=== PATIENT | female | born 1975 | race Two or more races ===

== ENCOUNTER 2021-10-21 20:48 | Emergency (ER) | payer OTHER, SELFPAY ==
[2021-10-21 21:02] VITALS: BP 155/91; PULSE 99; RESP 18; TEMP 36.5; O2SAT 99; BMI 42.7
--- NOTE | 2021-10-21 22:55 | ED_ITS ---
HPI - Skin/Abscess/Foreign Bdy General Chief complaint: Skin/Abscess/Foreign Body Stated complaint: Rash Time Seen by Provider: 10/21/21 22:54 Source: patient Mode of arrival: ambulatory Limitations: no limitations History of Present Illness HPI narrative: 46-year-old female presents with diffuse rash on her face, chest, neck, axilla, abdomen, back, groin and thighs. Rash started approximately a week ago, was se en by her primary care physician and given Bactrim and a prescription or ointment that was ineffective. Patient states that this itching is causing anxiety and panic. Patient does not know if she has been exposed to any allergens, does not have any known environmental allergies, has not changed any of her household products or eaten any foods suspicious of allergy. MD complaint: rash Onset (ago): week(s) (1) Tetanus up to date: yes Location: generalized Severity: moderate Severity scale (1-10): 7 Quality: burning and constant Pain Consistency: constant Relieving factors: none Exacerbating factors: palpation and movement Context: none Associated symptoms: itching Treatments prior to arrival: OTC topical medication, Benadryl and antibiotic Related Data Previous Rx's Medication Instructions Recorded famotidine 20 mg tablet (Pepcid AC) 20 mg PO BID 5 Days #10 tab 10/21/21 prednisone 10 mg tablet 10 mg PO DAILY #63 tab 10/21/21 triamcinolone acetonide 0.1 % 1 appl TOPICAL BID 14 Days #80 g 10/21/21 topical ointment Allergies Allergy/AdvReac Type Severity Reaction Status Date / Time bacitracin [From Polysporin] Allergy Intermediate HIVES Verified 10/21/21 21:01 Ear Drops Allergy Unknown Unknown Uncoded 10/21/21 21:01 From Polysporin Allergy Unknown HIVES Uncoded 02/18/20 15:36 Pt states no food allergies Allergy Unknown Unknown Uncoded 10/21/21 21:01 Review of Systems Review of Systems: Constitutional: No Fever, No Chills ENT/Mouth: No Ear Pain, No Hoarseness, No sore throat Eyes: No Eye Pain, No Swelling, No Redness, No Foreign Body Cardiovascular: No Chest Pain, No SOB Respiratory: No Cough, No Dyspnea Gastrointestinal: No Nausea, No Vomiting, No Diarrhea, No abdominal Pain Genitourinary: No Dysuria, No Hematuria Musculoskeletal: No joint pain, No Myalgias, No Joint Swelling Skin: No Skin lacerations, positive full-body rash Neuro: No Weakness, No Numbness, No Paresthesias, No Loss of Consciousness, No Dizziness, No Headache Psych: No Anxiety/Panic, No Depression Heme/Lymph: no easy bruising, no Lymphadenopathy Endocrine: No Polyuria, No Polydipsia Yes all other systems are reviewed and are negative [facility], [facility] Past Medical History Attestation statement: The following information was validated with the patient. Source: old records reviewed Social History Social History Advance Directives: No Advance Directives Information Provided: No Physical Exam Vital Signs: Vital Signs: Last Vital Signs Temp 97.7 F 10/21/21 21:02 Pulse 99 10/21/21 21:02 Resp 18 10/21/21 21:02 BP 155/91 H 10/21/21 21:02 Pulse Ox 99 10/21/21 21:02 BMI result Body Mass Index 42.7 Appearance: Alert. Oriented X3. No acute distress. Eyes: Pupils equal, round and reactive to light. ENT: Pharynx normal. Neck: Normal inspection. Neck supple. CVS: Normal heart rate and rhythm. Pulses normal. Respiratory: No respiratory distress. Breath sounds normal. Abdomen: Soft and nontender. Skin: Diffuse urticaria. Skin warm and dry. Normal skin color. Normal skin turgor. Extremities: No lower extremity edema. Gait well-balanced well coordinated. Neuro: No motor deficit. No sensory deficit. Cranial nerves 2-12 intact. Course Course Course Narrative: 46-year-old female presents with diffuse rash starting Saturday. Was seen by primary care given prescriptions cream and Bactrim with poor effect. Patient does have diffuse rash throughout her body. Lung sounds are clear to auscultation all lobes. No tracheal stridor. No angioedema. Able to manage secretions. Rash consistent with suspected allergic reaction. Will treat with prednisone, Pepcid. Patient verbalized understanding of and agrees to plan of care to discharge home. Verbalized understanding of signs and symptoms indicating need for emergent intervention MDM - Skin/Abscess/Foreign Bdy Differential Diagnosis Differential diagnosis: Likely viral exanthem and urticaria Medical Records Attestation: I reviewed the patient's medical records. Discharge Plan Discharge Clinical Impression: Urticaria, Allergic reaction Patient Disposition: Home, Self-Care Instructions: Urticaria (ED), General Allergic Reaction (ED), Allergy Testing (ED) Additional Instructions: You were evaluated for rash on her face, neck, chest, axilla, abdomen and groin. This looks like an allergic reaction. Please follow-up with primary care physician for allergy testing Please take prednisone as directed. This prednisone is a taper. Please take Pepcid 20 mg every 12 hours for the next 5 days. Please take Benadryl 50 mg every 8 hours as needed for itching. Prescriptions: New prednisone 10 mg tablet 10 mg PO DAILY Qty: 63 0RF Rx Instructions: 60 mg p.o. for 3 days, 50 mg p.o. for 3 days, 40 mg p.o. for 3 days, 30 mg p.o. for 3 days, 20 mg p.o. for 3 days, 10 mg p.o. for 3 days famotidine [Pepcid AC] 20 mg tablet 20 mg PO BID 5 Days Qty: 10 0RF triamcinolone acetonide 0.1 % ointment 1 appl topical BID 14 Days Qty: 80 0RF Interventions: ED Discharge Assessment Last Done: 10/22/21 00:20 Discharge Date/Time: 10/22/21 00:20
[2021-10-21] MEDS: predniSONE 20 MG TABLET 60 MG PO (23:39)
[2021-10-21] MEDS: Famotidine 20 MG TABLET PO (23:39)
== END 2021-10-22 00:20 | disposition home or self-care (01) ==
PROVIDERS: Emergency Provider Internal Medicine; PCP Internal Medicine
DX: L50.0 Allergic urticaria (principal); R21 Rash and other nonspecific skin eruption; R00.2 Palpitations
CPT/HCPCS: 99283

== ENCOUNTER 2021-11-01 23:59 | Emergency (ER) | payer OTHER, SELFPAY ==
[2021-11-02 00:06] VITALS: BP 157/82; PULSE 83; RESP 15; TEMP 36.2; O2SAT 98; BMI 45.8
[2021-11-02 00:54] LABS: Hemoglobin 12.8 g/dl (12.0-16.0); Mean Corpuscular HGB Conc 31.8 g/dl (31.0-35.0); Mean Corpuscular Hemoglobin 29.1 pg (27.0-33.0); PLT CLUMP 1; SCAN SMEAR FLAG 1
[2021-11-02 00:56] LABS: Basophils Absolute Auto 0.1 X10*3/uL (0.0-0.2); Basophils Percent Auto 0.5 % (0-2); Eosinophils Absolute Auto 0.1 X10*3/uL (0.0-0.4); Eosinophils Percent Auto 0.6 % (0-4); Hematocrit 40.3 % (37.0-47.0); Imm Gran Abs Auto 0.12 X10*3/uL (0.00-0.03); Lymphocytes Absolute Auto 3.7 X10*3/uL (1.2-4.9); Lymphocytes Percent Auto 31.9 % (20-40); Mean Corpuscular Volume 91.6 fL (80.0-98.0); Mean Platelet Volume 9.7 fL (9.4-12.3); Monocytes Absolute Auto 0.7 X10*3/uL (0.1-1.2); Monocytes Percent Auto 6.3 % (2-11); Neutrophils Percent Auto 59.7 % (45-73); Red Cell Distribution Width 14.8 % (11.0-16.0); White Blood Count 11.7 X10*3/uL (4.8-10.8)
[2021-11-02 00:57] LABS: MANUAL DIFF FLAG NO
[2021-11-02 01:11] LABS: Platelet Count 267 X10*3/uL (160-400)
[2021-11-02 01:14] LABS: Alanine Aminotransferase 33 U/L (0-31); Albumin Level 3.7 g/dL (3.5-5.0); Alkaline Phosphatase 65 U/L (39-117); Anion Gap 15 (12-20); Aspartate Amino Transferase 20 U/L (5-31); Bilirubin Total 0.2 mg/dL (0.0-1.0); Blood Urea Nitrogen 16 mg/dL (9-16); Calcium 9.1 mg/dL (8.4-10.2); Carbon Dioxide 23 mmol/L (22-29); Chloride 106 mmol/L (96-108); Estimated Glomerular Filt Rate > 60; Glucose Random 151 mg/dL (60-115); Potassium 3.7 mmol/L (3.3-5.1); Sodium 140 mmol/L (135-145); Total Protein 6.7 g/dL (6.5-8.0)
[2021-11-02 01:16] LABS: B Type Natriuretic Peptide 55 pg/mL (<100)
--- NOTE | 2021-11-02 02:28 | ED_ITS ---
HPI - General Adult General Chief complaint: General Medical Stated complaint: med reaction Time Seen by Provider: 11/02/21 02:28 Source: patient and family Mode of arrival: ambulatory Limitations: no limitations History of Present Illness HPI narrative: 46-year-old female came in for evaluation of bilateral leg swelling. Patient was seen about a week ago for rash and diagnosed with urticaria patient was started on prednisone, Pepcid for treatment, patient been noticing for the past few days swelling of bilateral legs, patient declined any shortness of breath, no PND. No more allergic reaction at this point. Related Data Previous Rx's Medication Instructions Recorded famotidine 20 mg tablet (Pepcid AC) 20 mg PO BID 5 Days #10 tab 10/21/21 prednisone 10 mg tablet 10 mg PO DAILY #63 tab 10/21/21 triamcinolone acetonide 0.1 % 1 appl TOPICAL BID 14 Days #80 g 10/21/21 topical ointment furosemide 40 mg tablet (Lasix) 40 mg PO DAILY #5 tab 11/02/21 Allergies Allergy/AdvReac Type Severity Reaction Status Date / Time bacitracin [From Polysporin] Allergy Intermediate HIVES Verified 10/21/21 21:01 Ear Drops Allergy Unknown Unknown Uncoded 10/21/21 21:01 From Polysporin Allergy Unknown HIVES Uncoded 02/18/20 15:36 Pt states no food allergies Allergy Unknown Unknown Uncoded 10/21/21 21:01 Review of Systems Review of Systems: All other systems are reviewed and are negative Constitutional: Reports as per HPI and Reports no additional constitutional complaints Eyes: Reports as per HPI and Reports no additional eye complaints Reports system reviewed and no additional complaints, except as documented Cardiovascular: Reports as per HPI and Reports no additional cardiovascular complaints Respiratory: Reports as per HPI and Reports no additional respiratory complaints Gastrointestinal: Reports as per HPI and Reports no additional gastrointestinal complaints Genitourinary: Reports no additional female genitourinary complaints Musculoskeletal: Reports no additional musculoskeletal complaints Skin/Breast: Reports system reviewed and no additional complaints, except as docu Psychiatric: Reports no additional psychiatric complaints Endocrine: Reports no additional endocrine complaints Hematologic/Lymphatic: Reports no additional hematologic/lymphatic complaints Allergic/Immunologic: Reports no additional allergic/immunologic complaints Reports system reviewed and no additional complaints, except as documented and Reports Abnormal speech present [facility] Social History Social History Advance Directives: No Advance Directives Information Provided: No Physical Exam ED Vital Signs: Vital Signs - 24 hr 11/02/21 00:06 Temperature 97.2 F Pulse Rate 83 Respiratory Rate 15 Blood Pressure 157/82 H Pulse Oximetry 98 BMI result Body Mass Index 45.8 Vital signs have been reviewed as appeared to be correct. Blood pressure no rmal. Heart rate normal. Respiration rate normal. Temperature normal. Oxygen saturation normal. Appearance: Alert. Oriented X3. No acute distress. Head: Normal external exam. Normocephalic. Atraumatic. No Ortez signs noted. No raccoon eyes noted Eyes: PERRLA. EOMI. Conjunctiva and sclera normal. Eyelids normal. ENT: TM's Normal. Pharynx normal. Uvula midline. Moist mucous membranes. No trismus noted. No drooling noted. No muffled voice noted. Neck: Normal inspection. Neck supple. FROM. No adenopathy. Thyroid Normal. No meningeal signs. No neck mass noted. CVS: Normal heart rate and rhythm. Heart sound normal. No murmurs noted. Pulses normal throughout. Respiratory: No respiratory distress. Painless inspiration. Breath sounds normal. No wheezes/rales/rhonchi noted. Chest nontender. No accessory muscle usage noted or decreased air movement noted. Abdomen: Soft and nontender. Bowel sounds normal in all 4 quadrants. No distention noted. No organomegaly noted. No visible injury noted. Back: No CVA tenderness. Full range of motion noted. Skin: Skin warm and dry. Normal skin color. Normal skin turgor. No rashes/lesions/lacerations noted. Extremities: +2 lower extremity edema. Extremities exhibit normal range of motion. Extremities nontender. Neuro: Oriented X 3. Cranial nerve exam: II-XII are grossly intact No motor deficit. No sensory deficit. Reflexes normal. Course Course Course Narrative: Assessment and plan. 46-year-old female recently was started on course of prednisone for urticaria, patient is showing side effects from prednisone with elevation blood pressure and blood sugar. Will start the patient on few days of Lasix and will discontinue prednisone (was started a week ago will taper it down for the next 2 days then discontinue. Medical Decision Making Lab Data Lab results reviewed: Yes I reviewed the patient's lab results. Result diagrams: 11/02/21 00:43 11/02/21 00:43 Labs: Lab Results 11/02/21 11/02/21 11/02/21 Range/Units 00:43 00:43 00:43 WBC 11.7 H (4.8-10.8) X10*3/uL RBC 4.40 (4.20-5.50) X10*6/uL Hgb 12.8 (12.0-16.0) g/dl Hct 40.3 (37.0-47.0) % MCV 91.6 (80.0-98.0) fL MCH 29.1 (27.0-33.0) pg MCHC 31.8 (31.0-35.0) g/dl RDW 14.8 (11.0-16.0) % Plt Count 267 (160-400) X10*3/uL MPV 9.7 (9.4-12.3) fL Immature Gran % (Auto) 1.0 H (0.0-0.4) % Neut % (Auto) 59.7 (45-73) % Lymph % (Auto) 31.9 (20-40) % Calvert % (Auto) 6.3 (2-11) % Eos % (Auto) 0.6 (0-4) % Baso % (Auto) 0.5 (0-2) % Lymph # (Auto) 3.7 (1.2-4.9) X10*3/uL Calvert # (Auto) 0.7 (0.1-1.2) X10*3/uL Eos # (Auto) 0.1 (0.0-0.4) X10*3/uL Baso # (Auto) 0.1 (0.0-0.2) X10*3/uL Abs Immat Gran (auto) 0.12 H (0.00-0.03) X10*3/uL Absolute Neuts (auto) 7.0 (2.0-8.3) x10*3/uL Absolute Nucleated RBC 0.000 (0.0-0.012) X10*3/uL Nucleated RBC % (auto) 0.0 (0.0-0.2) /100WBC Sodium 140 (135-145) mmol/L Potassium 3.7 (3.3-5.1) mmol/L Chloride 106 (96-108) mmol/L Carbon Dioxide 23 (22-29) mmol/L Anion Gap 15 (12-20) BUN 16 (9-16) mg/dL Creatinine 0.80 (0.5-1.4) mg/dL Estim Creat Clear Calc 98.0 Estimated GFR > 60 Random Glucose 151 H (60-115) mg/dL Calcium 9.1 (8.4-10.2) mg/dL Total Bilirubin 0.2 (0.0-1.0) mg/dL AST 20 (5-31) U/L ALT 33 H (0-31) U/L Alkaline Phosphatase 65 (39-117) U/L B-Natriuretic Peptide 55 (<100) pg/mL Total Protein 6.7 (6.5-8.0) g/dL Albumin 3.7 (3.5-5.0) g/dL Discharge Plan Discharge Clinical Impression: Leg swelling Patient Disposition: Home, Self-Care Instructions: Edema (ED) Additional Instructions: elevate both legs on pillow at night time, as we discussed take 1 prednisone today and 1 tablet tomorrow then discontinue it altogether, take the water pills for the next 3 days, return for any chest pain or shortness of breath. Prescriptions: New furosemide [Lasix] 40 mg tablet 40 mg PO DAILY Qty: 5 0RF No Action prednisone 10 mg tablet 10 mg PO DAILY Qty: 63 0RF Rx Instructions: 60 mg p.o. for 3 days, 50 mg p.o. for 3 days, 40 mg p.o. for 3 days, 30 mg p.o. for 3 days, 20 mg p.o. for 3 days, 10 mg p.o. for 3 days famotidine [Pepcid AC] 20 mg tablet 20 mg PO BID 5 Days Qty: 10 0RF triamcinolone acetonide 0.1 % ointment 1 appl topical BID 14 Days Qty: 80 0RF Referrals: Bert Barriga MD [Primary Care Provider] -
[2021-11-02] MEDS: Furosemide 40 MG TABLET PO (03:08)
[2021-11-02 03:09] VITALS: BP 130/76; PULSE 85
== END 2021-11-02 04:50 | disposition home or self-care (01) ==
PROVIDERS: Emergency Provider Emergency Medicine; PCP Internal Medicine
DX: M79.89 Other specified soft tissue disorders (principal); L50.9 Urticaria, unspecified; Z79.52 Long term (current) use of systemic steroids
CPT/HCPCS: 36415; 80053; 83880; 85025; 99281; 99283

== ENCOUNTER 2023-06-06 04:38 | Emergency (ER) | payer SELFPAY ==
[2023-06-06 04:39] VITALS: BP 142/96; PULSE 102; RESP 18; TEMP 36.8; O2SAT 98; BMI 44.9
--- NOTE | 2023-06-06 07:23 | ED.GENADULT ---
HPI - General Adult General Chief complaint: Upper Respiratory Symptoms Stated complaint: Congested/Sore throat Time Seen by Provider: 06/06/23 07:21 Source: patient Mode of arrival: ambulatory Limitations: no limitations History of Present Illness HPI narrative: Patient is a 48 year old assigned female at with no reported medical history presenting to the emergency department today with a sore throat. Patient states that over the last 4 days she has had a sore throat. Patient denies any dizziness, lightheadedness, abdominal pain, nausea, vomiting, fever, chills, blurry vision, double vision, loss of vision, chest pain, difficulty breathing, shortness of breath, back pain, night sweats, pain with urination, increased urinary frequency, increased urinary urgency, blood in her urine or stool, syncope or a near syncopal episode, recent trauma or falls, bowel incontinence, bladder incontinence, bowel retention, bladder retention, or any other complaints at this time. Onset (ago): day(s) (4) Severity: mild Severity scale (1-10): 3 Relieving factors: none Exacerbating factors: none Associated symptoms: denies other symptoms Treatments prior to arrival: none Related Data Previous Rx's Medication Instructions Recorded famotidine 20 mg tablet (Pepcid AC) 20 mg PO BID 5 days #10 tabs 10/21/21 prednisone 10 mg tablet 10 mg PO DAILY #63 tabs 10/21/21 triamcinolone acetonide 0.1 % 1 appl topical BID 2 weeks #80 10/21/21 topical ointment grams furosemide 40 mg tablet (Lasix) 40 mg PO DAILY #5 tabs 11/02/21 Allergies Allergy/AdvReac Type Severity Reaction Status Date / Time bacitracin [From Polysporin] Allergy Intermediate HIVES Verified 06/06/23 04:47 Ear Drops Allergy Unknown Unknown Uncoded 10/21/21 21:01 From Polysporin Allergy Unknown HIVES Uncoded 02/18/20 15:36 Review of Systems Constitutional: Constitutional: Reports no additional constitutional complaints, Denies chills, Denies fever(s) and Denies night sweats Eyes: Eyes: Reports no additional eye complaints, Denies blurry vision, Denies change in vision, Denies diplopia, Denies eye discharge, Denies loss of vision and Denies eye pain ENT: Denies dizziness and Reports sore throat Cardiovascular: Cardiovascular: Reports no additional cardiovascular complaints, Denies chest pain, Denies lightheadedness, Denies Loss of Consciousness and Denies dyspnea Respiratory: Respiratory: Reports no additional respiratory complaints and Denies dyspnea Gastrointestinal: Gastrointestinal: Reports no additional gastrointestinal complaints, Denies abdominal pain, Denies melena, Denies hematochezia, Denies change in bowel habits and Denies change in stool character Genitourinary: Genitourinary: Denies hematuria, Denies urinary frequency, Denies dysuria, Denies urinary incontinence, Denies urinary hesitancy and Denies urinary urgency Musculoskeletal: Musculoskeletal: Reports no additional musculoskeletal complaints, Denies numbness and Denies tingling Neurologic: Denies dizziness, Denies loss of vision, Denies numbness and Denies tingling Psychiatric: Psychiatric: Reports no additional psychiatric complaints Endocrine: Endocrine: Reports no additional endocrine complaints Hematologic/Lymphatic: Hematologic/Lymphatic: Reports no additional hematologic/lymphatic complaints Allergic/Immunologic: Allergic/Immunologic: Reports no additional allergic/immunologic complaints PMFSH Past Medical History Attestation statement: The following information was validated with the patient. Source: old records reviewed and nursing notes reviewed Onset Date is defined in the Problem List Problems that require an onset date and time if occurred within 24 hrs of arrival to the ED Aortic Dissection and Rupture; Neurologic impairment; Cardiopulmonary Arrest; Endotracheal Intubation; Insertion or Replacement of Mechanical Circulatory Assist Device Social History Social History Advance Directives: No Physical Exam ED Vital Signs: Vital Signs - 24 hr 06/06/23 04:39 Temperature 98.2 F Pulse Rate 102 H Respiratory Rate 18 Blood Pressure 142/96 H Pulse Oximetry 98 Oxygen Delivery Method Room Air BMI result Body Mass Index 44.9 Const General: cooperative, no acute distress, alert and awake Nutritional Appearance: well nourished Orientation/consciousness: patient oriented x3 Limitations: no limitations HENMT Head: Yes normal to inspection and Yes atraumatic Ears: hearing grossly normal bilaterally and external ears normal General nose exam: Normal external nose present, no nasal discharge noted and no epistaxis Face and sinus: Yes normal facial exam, No abrasion and No laceration Mouth: Normal oral and palatal mucosa present, no drooling and no muffled voice Throat: Yes other (pharyngeal erythema) Eyes General: appearance normal, both eyes and all related structures Periorbital: periorbital findings normal Eyelids: Yes eyelids normal Conjunctivae: conjunctivae normal Pupils: Equal, round and reactive pupils present EOM: EOMs intact bilaterally Neck Neck: Yes normal visual inspection, Yes full ROM and Yes no lymphadenopathy Chest Chest palpation & inspection: normal inspection of the chest Resp Effort & Inspection: normal respiratory effort and able to speak in complete sentences GI Inspection: Yes normal to inspection Neuro General: patient oriented x3 and moves all extremities Cranial nerves: Yes Equal, round and reactive pupils present Cognition (Neuro): normal cognition Motor exam (neuro): 5/5 motor strength present throughout Sensory Exam: Normal double simultaneous stimulation for sensation Coordination: [id number] test normal Extrem General: Yes normal to inspection, Yes full ROM and Yes capillary refill normal Psych Appearance: grossly normal Mental Status: mental status grossly normal Affect: normal affect Attitude: cooperative Thought process: Normal thought process present Thought content: Normal thought content present Insight: Good insight present (Psych) Medical Decision Making Medical Decision Making [facility] Narrative: Patient is a 48 year old assigned female at with no reported medical history presenting to the emergency department today with a sore throat. Patient's physical exam showed an erythematous pharynx but was otherwise unremarkable. Patient's strep, COVID-19, influenza, and RSV tests were negative. I explained my physical exam findings as well as all test results to the patient. I answered all questions asked by the patient. I stressed the importance of the patient taking her medication as prescribed. I stressed the importance of the patient following up with her primary care provider. I stressed the importance of the patient returning to the emergency department immediately if her symptoms were to worsen or if she were to develop any dizziness, shortness of breath, difficulty breathing, chest pain, blurry vision, loss of vision, nausea, vomiting, abdominal pain, fever, chills, back pain, or any other complaints. Patient verbalized agreement and understanding with this treatment plan and discharge. Differential Diagnosis Differential Diagnoses: The differential diagnosis associated with the presentation includes Pharyngitis COVID-19 Influenza RSV Strep pharyngitis Admission/Observation Consideration of admission/observation: Escalation of care including admission/observation considered Patient would have been admitted to the hospital had her work up had any findings where hospital admission was appropriate and her clinical presentation warranted hospital admission. Lab Data [facility] Lab Attestation statement: I reviewed the patient's lab results. My interpretation of these results are in the MDM Rationale portion of this note. Labs: Lab Results 06/06/23 Range/Units 04:48 Influenza Type A (PCR) NEGATIVE (Negative) Influenza Type B (PCR) NEGATIVE (Negative) RSV RNA Qual (PCR) NEGATIVE (Negative) SARS-CoV-2 RNA (RT-PCR) NEGATIVE (Negative) S. pyogenes GrpA MANI Negative (Negative) Discharge Plan Discharge Clinical Impression: Pharyngitis Patient Disposition: Home, Self-Care Instructions: Pharyngitis (ED) Additional Instructions: Follow up with your primary care provider. Return to the emergency department immediately if your symptoms worsen or if you develop any dizziness, shortness of breath, difficulty breathing, chest pain, blurry vision, loss of vision, nausea, vomiting, abdominal pain, fever, chills, back pain, or any other complaints. Prescriptions: No Action prednisone 10 mg tablet 10 mg PO DAILY Qty: 63 0RF Rx Instructions: 60 mg p.o. for 3 days, 50 mg p.o. for 3 days, 40 mg p.o. for 3 days, 30 mg p.o. for 3 days, 20 mg p.o. for 3 days, 10 mg p.o. for 3 days famotidine [Pepcid AC] 20 mg tablet 20 mg PO BID 5 Days Qty: 10 0RF triamcinolone acetonide 0.1 % ointment 1 appl topical BID 14 Days Qty: 80 0RF furosemide [Lasix] 40 mg tablet 40 mg PO DAILY Qty: 5 0RF Referrals: [facility] [place] [facility] [Provider Group] (Call to establish and follow up with a primary care provider. If you already have a primary care provider, please follow up with them.) [facility] [place] [facility] [Provider Group] (Call to establish and follow up with a primary care provider. If you already have a primary care provider, please follow up with them.) [facility] [place] [facility] [Provider Group] (Call to establish and follow up with a primary care provider. If you already have a primary care provider, please follow up with them.) Stand Alone Forms: Work/School Release Interventions: ED Discharge Assessment Last Done: 06/06/23 07:39 Print Language: Palestinian
== END 2023-06-06 07:40 | disposition home or self-care (01) ==
PROVIDERS: Emergency Provider Student in an Organized Health Care Education/Training Program
DX: J02.9 Acute pharyngitis, unspecified (principal); Z20.822 Contact with and (suspected) exposure to COVID-19; Z20.828 Contact with and (suspected) exposure to other viral communicable diseases
CPT/HCPCS: 0241U; 87651; 99282; 99283; J1100

== ENCOUNTER 2023-07-30 18:37 | Emergency (ER) | payer OTHER, SELFPAY ==
--- NOTE | ~2023-07-30 | XR_ITS ---
EXAMINATION: XR CHEST CLINICAL INFORMATION: Cough, fever. COMPARISON: Chest radiograph 07/31/2012. TECHNIQUE: Frontal view of the chest was obtained. FINDINGS: Mild parahilar bronchial wall thickening. No focal consolidation, pleural effusion or pneumothorax. No pulmonary edema. Normal appearance of the cardiomediastinal silhouette. No acute osseous findings. Visualized upper abdomen is within normal limits. XR/XR chest 1V IMPRESSION: Findings are suggestive of small airways disease without focal consolidation or pleural effusion.
--- NOTE | 2023-07-30 18:57 | ED.GENADULT ---
HPI - General Adult General Chief complaint: Upper Respiratory Symptoms Stated complaint: URI,Fever Time Seen by Provider: 07/30/23 20:31 Source: patient Mode of arrival: ambulatory Limitations: no limitations History of Present Illness HPI narrative: Patient is a 48-year-old female presenting to the ED with complaint of nonproductive cough with metallic taste as well as low-grade fevers around 100 for the past 3 days. Temp in triage 100.7, tachycardic at 120. Denies history of asthma. Denies chest pain or palpitations. Tested neg for covid at home. Has been taking Tylenol. complaint: cough, fever Onset (ago): day(s) Associated symptoms: cough and fever/chills Treatments prior to arrival: other (Tylenol) Related Data Previous Rx's Medication Instructions Recorded famotidine 20 mg tablet (Pepcid AC) 20 mg PO BID 5 days #10 tabs 10/21/21 prednisone 10 mg tablet 10 mg PO DAILY #63 tabs 10/21/21 triamcinolone acetonide 0.1 % 1 appl topical BID 2 weeks #80 10/21/21 topical ointment grams furosemide 40 mg tablet (Lasix) 40 mg PO DAILY #5 tabs 11/02/21 Allergies Allergy/AdvReac Type Severity Reaction Status Date / Time bacitracin [From Polysporin] Allergy Intermediate HIVES Verified 07/30/23 18:59 Ear Drops Allergy Unknown Unknown Uncoded 07/30/23 18:59 From Polysporin Allergy Unknown HIVES Uncoded 07/30/23 18:59 Review of Systems Review of Systems: As per HPI. Yes all other systems are reviewed and are negative Constitutional: Constitutional: Reports as per HPI Physical Exam ED Vital Signs: Vital Signs - 24 hr 07/30/23 18:59 Temperature 100.7 F H Pulse Rate 117 H Respiratory Rate 16 Blood Pressure 155/87 H Pulse Oximetry 99 Oxygen Delivery Method Room Air BMI result Body Mass Index 41.3 Vital signs have been reviewed and appear to be correct. Blood pressure elevated. Heart rate tachycardic. Respiratory rate normal. Temperature febrile. Oxygen saturation normal. Const General: cooperative, healthy appearing and no acute distress Orientation/consciousness: oriented to person, oriented to place, oriented to time and patient oriented x3 Limitations: no limitations HENMT Head: Yes normocephalic and Yes atraumatic Ears: external ears normal General nose exam: Normal external nose present Face and sinus: Yes face symmetric Mouth: oropharynx normal and moist mucous membranes Throat: Yes uvula midline Eyes Pupils: Equal, round and reactive pupils present Neck Neck: Yes normal visual inspection and Yes supple Resp Effort & Inspection: normal respiratory effort and able to speak in complete sentences Auscultation: clear to auscultation bilaterally Cardio Rate: regular rate Rhythm: regular rhythm Heart sounds: S1 normal heart sound present and S2 normal heart sound present GI Palpation (GI): Soft to palpation and nontender Auscultation: normoactive bowel sounds General: Yes no CVA tenderness Back/Spine/Pelvis Back: no CVA tenderness Skin General skin exam: elasticity normal and turgor normal Neuro General: oriented to person, oriented to place, oriented to time, patient oriented x3, moves all extremities, no focal motor deficits and CN's II-XI intact bilaterally Cranial nerves: Yes Equal, round and reactive pupils present Cognition (Neuro): normal cognition Extrem General: Yes full ROM, Yes no pedal edema and Yes no calf tenderness Psych Mental Status: mental status grossly normal Affect: normal affect Thought process: Normal thought process present Medications Administered Discontinued Medications Generic Name Dose Route Start Last Admin Trade Name Freq PRN Reason Stop Dose Admin Ibuprofen 600 mg 07/30/23 18:59 07/30/23 19:03 Ibuprofen 600 Mg Tablet PO 07/30/23 19:00 600 mg ONCE ONE Administration Medical Decision Making Medical Decision Making [facility] Narrative: Patient is a 48-year-old female presenting to the ED with complaint of nonproductive cough with metallic taste as well as low-grade fevers around 100 for the past 3 days. On exam patient is awake, A+Ox3, initially mildly tachycardic and febrile, normal neurological exam without focal deficits, physical exam findings as above. Given reported symptoms and physical exam findings, initial differential includes viral URI, covid, flu, rsv, pneumonia. Swab for flu positive. Tachycardia and fever improved with ibuprofen in the ED. Patient updated on results and all questions answered. Isolation precautions discussed. Return precautions discussed. Patient is outside window for treatment with Tamiflu. Instructed patient to follow up with PCP, alternate Tylenol and ibuprofen as needed. Patient verbalized understanding of and agreement with plan. Differential Diagnosis Differential Diagnoses: The differential diagnosis associated with the presentation includes As per [facility] Lab Data [facility] Lab Attestation statement: I reviewed the patient's lab results. As per [facility]. Labs: Lab Results 07/30/23 Range/Units 19:05 Influenza Type A (PCR) POSITIVE A (Negative) Influenza Type B (PCR) NEGATIVE (Negative) RSV RNA Qual (PCR) NEGATIVE (Negative) SARS-CoV-2 RNA (RT-PCR) NEGATIVE (Negative) Independent Interpretation I performed an independent interpretation of an: Plain X-Ray Interpretation: No evidence of pneumonia on CXR Radiology Impression Discussion of test interpretation with radiology: I have reviewed the radiologist's reading. Radiologist Impression: XR/XR chest 1V IMPRESSION: Findings are suggestive of small airways disease without focal consolidation or pleural effusion. External Record Review External record reviewed: Inpatient record, Office record and Outpatient record Prescription Management I considered prescription management with: Antiviral Discharge Plan Discharge Clinical Impression: Influenza Patient Disposition: Home, Self-Care Instructions: Influenza (DC), Flu Shot (Vaccine) for Adults (ED), Droplet Precautions (ED) Additional Instructions: You were evaluated in the emergency department today for cough and fever. Your flu test was positive. You should isolate at home for another 3 days and continue to wear mask while symptomatic after that. You were offered treatment with Tamiflu which you declined. Your symptoms should resolve over time with rest and fluids. You can take 650 mg Tylenol or 600 mg ibuprofen every 6 hours as needed for fever or pain. Please follow-up with your primary care provider for any ongoing symptoms. Return to the emergency department if you develop worsening pain, fever not controlled with Tylenol and ibuprofen, chest pain, dizziness or lightheadedness, or any other concerning symptoms. Prescriptions: No Action prednisone 10 mg tablet 10 mg PO DAILY Qty: 63 0RF Rx Instructions: 60 mg p.o. for 3 days, 50 mg p.o. for 3 days, 40 mg p.o. for 3 days, 30 mg p.o. for 3 days, 20 mg p.o. for 3 days, 10 mg p.o. for 3 days famotidine [Pepcid AC] 20 mg tablet 20 mg PO BID 5 Days Qty: 10 0RF triamcinolone acetonide 0.1 % ointment 1 appl topical BID 14 Days Qty: 80 0RF furosemide [Lasix] 40 mg tablet 40 mg PO DAILY Qty: 5 0RF Stand Alone Forms: Work/School Release
[2023-07-30 18:59] VITALS: BP 155/87; PULSE 117; RESP 16; TEMP 38.2; O2SAT 99; BMI 41.3
[2023-07-30] MEDS: Ibuprofen 600 MG TABLET PO (19:03)
[2023-07-30 19:47] LABS: Influenza A PCR POSITIVE (Negative); Influenza B PCR NEGATIVE (Negative); Resp Syncy Virus RNA Qual PCR NEGATIVE (Negative); SARS COV2 PCR INHOUSE NEGATIVE (Negative)
[2023-07-30 20:36] VITALS: BP 149/91; PULSE 100; RESP 14; TEMP 37.6; O2SAT 97
== END 2023-07-30 20:43 | disposition home or self-care (01) ==
PROVIDERS: Registered Nurse Emergency; Emergency Provider Emergency Medicine Emergency Medical Services; PCP Physician Assistant
DX: J10.1 Influenza due to other identified influenza virus with other respiratory manifestations (principal); R05.9 Cough, unspecified; R50.9 Fever, unspecified; Z79.899 Other long term (current) drug therapy; Z20.822 Contact with and (suspected) exposure to COVID-19; Z11.52 Encounter for screening for COVID-19
CPT/HCPCS: 0241U; 71045; 99283